=== PATIENT | female | born 1950 ===

== ENCOUNTER → 2018-10-20 | Outpatient (CLI) | payer MEDICARE, OTHER | END | disposition home or self-care (01) | LOC: LAB 09:06 → LAB SHORT 09:06 | DX: R10.9 Unspecified abdominal pain (principal) | CPT/HCPCS: 87077; 87086; 87186 ==

== ENCOUNTER → 2024-06-27 | Outpatient (CLI) | payer MEDICARE | LOC: LAB SHORT 18:58 → LAB 18:58 | DX: R30.0 Dysuria (principal) | CPT/HCPCS: 87086 ==